=== PATIENT | male | born 1985 | race Caucasian/White ===

== ENCOUNTER 2016-06-05 10:45 | Emergency (ER) | payer OTHER ==
[~2016-06-05] VITALS: Ht 165.1 cm; Wt 54.4 kg
[~2016-06-05 10:45] MED LIST: ACETAMINOPHEN-1 EAC1 PO; APAP500; CYCLOBENZAPRINE10 MG PO; FLEXERIL PO; IBUPROFEN 600600 M1 PO; IBUPROFEN 800800 M1 PO; IBUPROFEN 800800 MG PO; NOHOMEMEDICATIONS; NORCO 10-325 T1 EACH PO; NORCO 5-325 TA1 EACH PO; ONDANSETRON HCL4 M2 PO; PENICILLIN V P500 MG PO; PHENERGAN 25 MG25 M1 PO
[2016-06-05 11:27] LABS: ABSOLUTE NEUTROPHILS 3.4 thou/uL (1.4-8.2); BASOPHILS 0.7 % (0.0-2.0); EOSINOPHILS 4.3 % (0.0-3.0); HEMATOCRIT 35.2 % (42.0-52.0); HEMOGLOBIN 12.1 gm/dL (14.0-18.0); LYMPHOCYTES 45.9 % (24.0-44.0); MCH 32.4 pg (26.0-34.0); MCHC 34.2 g/dL (28.0-37.0); MCV 94.7 fL (80.0-100.0); MONOCYTES 10.6 % (1.0-8.0); PLATELET COUNT 330 thou/uL (150-400); POLYS 38.5 % (36.0-66.0); RBC 3.72 mil/uL (4.50-6.00); RDW 14.9 % (10.5-14.5); WBC 8.7 thou/uL (4.0-11.0)
[2016-06-05 11:32] LABS: MANUAL DIFF NO
[2016-06-05 11:38] LABS: CREATININE 1.1 mg/dL (0.7-1.3)
[2016-06-05 11:44] LABS: ALBUMIN 3.9 g/dL (3.4-5.0); TOTAL BILIRUBIN 0.2 mg/dL (<0.1-1.0); TOTAL PROTEIN 8.5 g/dL (6.4-8.2)
[2016-06-05 12:22] LABS: URINE BILIRUBIN NEGATIVE (Negative); URINE BLOOD TRACE (Negative); URINE COLOR YELLOW; URINE GLUCOSE-RANDOM* NEGATIVE (Negative); URINE KETONES NEGATIVE (Negative); URINE NITRITE NEGATIVE (Negative); URINE PROTEIN (DIPSTICK) NEGATIVE (Negative); URINE UROBILINOGEN 0.2 E.U./dl (0.2-1.0)
[2016-06-05] MEDS ORDERED: ONDANSETRON HCL4 M2 PO (12:30)
[2016-06-05] MEDS ORDERED: LEVSIN0.125 MG PO (12:30)
[2016-06-05 12:35] LABS: AMP/METHAMP Negative (Negative); BARBITURATES Negative (Negative); BENZODIAZEPINES Negative (Negative); COCAINE Negative (Negative); METHADONE Negative (Negative); OPIATES POSITIVE (Negative); PCP Negative (Negative); THC Negative (Negative)
[2016-06-05 13:20] VITALS: BP 117/76
== END 2016-06-05 13:20 | disposition home or self-care (01) ==
LOC: ER 10:45
PROVIDERS: Physician Assistant
DX: R10.84 Generalized abdominal pain (principal); R11.2 Nausea with vomiting, unspecified; R19.7 Diarrhea, unspecified; Z88.5 Allergy status to narcotic agent; Z90.89 Acquired absence of other organs

== ENCOUNTER 2016-12-02 12:17 | Emergency (ER) | payer OTHER ==
[~2016-12-02] VITALS: Ht 162.6 cm; Wt 54.4 kg
--- NOTE | ~2016-12-02 | EKG ---
[address] [place] [address] ELECTROCARDIOGRAM REPORT Name: BRYNN MONGE [id number] Admission: 12/02/16 Attend Phys: Discharge: Date of : 85 Report #: [id number] THIS REPORT FOR: //name// ED Test Date: 2016-12-02 Test Time: 12:22:28 Pat Name: BRYNN MONGE Department: Room: Gender: Special Ed Assistant: TAYO : 1985 Requested By: Josefina Carrera Order Number: [id number] MD: Kevin Meyers Measurements Intervals [place] Rate: 65 P: 13 UT: 152 QRS: -15 QRSD: 78 T: 0 QT: 416 QTc: 433 Interpretive Statements Sinus rhythm LVH by voltage Borderline T abnormalities, inferior leads ST elev, probable normal early repol pattern No previous ECG available for comparison Electronically Signed On 12-02-2016 15:23:39 CDT by Kevin Meyers [email or web address] <ELECTRONICALLY SIGNED> By: Kevin Meyers MD 12/02/16 1523 1222 1222 MD DES Mccauley
[~2016-12-02 12:17] MED LIST changes: +LEVSIN0.125 MG PO
[2016-12-02 13:03] LABS: HEMATOCRIT 34.1 % (42.0-52.0); HEMOGLOBIN 11.4 gm/dL (14.0-18.0); MANUAL DIFF YES; MCH 30.5 pg (26.0-34.0); MCHC 33.3 g/dL (28.0-37.0); MCV 91.5 fL (80.0-100.0); PLATELET COUNT 317 thou/uL (150-400); RBC 3.72 mil/uL (4.50-6.00); RDW 14.7 % (10.5-14.5); WBC 12.4 thou/uL (4.0-11.0)
[2016-12-02 13:10] LABS: ANION GAP 8 mmol/L (7-16); BUN 17 mg/dL (7-18); CALCIUM 9.4 mg/dL (8.5-10.1); CHLORIDE 103 mmol/L (98-107); CO2 25 mmol/L (21-32); CREATININE 1.2 mg/dL (0.7-1.3); GLUCOSE 96 mg/dL (74-106); POTASSIUM 3.9 mmol/L (3.5-5.1); SODIUM 136 mmol/L (136-145)
[2016-12-02 13:19] LABS: ALBUMIN 3.6 g/dL (3.4-5.0); ALKALINE PHOSPHATASE 161 U/L (46-116); SGOT 17 U/L (15-37); SGPT 18 U/L (30-65); TOTAL BILIRUBIN 0.1 mg/dL (<0.1-1.0); TOTAL PROTEIN 8.7 g/dL (6.4-8.2); TROPONIN-I < 0.04 ng/mL (<0.04-0.07)
[2016-12-02 13:26] LABS: ABSOLUTE NEUTROPHILS 7.8 thou/uL (1.4-8.2); ANISOCYTOSIS 1+; POIKILOCYTOSIS SLIGHT; TOTAL CELL COUNT 100
[2016-12-02] MEDS ORDERED: LIDOCAINE1 EACH TRANSDERM (13:56)
[2016-12-02] MEDS ORDERED: NAPROSYN500 MG PO (13:56)
[2016-12-02 15:33] VITALS: BP 136/69
== END 2016-12-02 15:35 | disposition home or self-care (01) ==
LOC: ER 12:17
PROVIDERS: Physician Assistant
DX: R07.89 Other chest pain (principal); Z87.442 Personal history of urinary calculi; Z90.81 Acquired absence of spleen; Z98.890 Other specified postprocedural states; Z88.5 Allergy status to narcotic agent